=== PATIENT | male | born 1980 | race Caucasian/White ===

== ENCOUNTER 2017-10-27 20:52 | Emergency (ER) | payer MEDICAID ==
[~2017-10-27] VITALS: Ht 167.6 cm; Wt 81.6 kg
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
[2017-10-27] MEDS ORDERED: IBUPROFEN 600 MG TABLET PO ONE ×2 (21:21→21:30)
[2017-10-27] MEDS ORDERED: METHOCARBAMOL (500MG) 500 MG TABLET ONE (21:23)
[2017-10-27] MEDS ORDERED: LORAZEPAM INJ 2 MG/ML VIAL ONE (21:27)
[2017-10-27] MEDS ORDERED: KETOROLAC TROMETHAMINE INJ 30 MG/ML VIAL ONE (21:27)
[2017-10-27] MEDS ORDERED: METHOCARBAMOL (750MG) 750 MG TABLET PO SCH (21:30)
[2017-10-27 21:49] VITALS: BP 162/113
== END 2017-10-27 21:49 | disposition home or self-care (01) ==
LOC: ER 20:54
DX: S39.012A Strain of muscle, fascia and tendon of lower back, initial encounter (principal); I10 Essential (primary) hypertension; V49.49XA Driver injured in collision with other motor vehicles in traffic accident, initial encounter; Y93.89 Activity, other specified; Y92.89 Other specified places as the place of occurrence of the external cause; Y99.8 Other external cause status
CPT/HCPCS: 99283; A4606; Z7610; J1885; J2060